=== PATIENT | female | born 1930 | race Caucasian/White ===

== ENCOUNTER 2017-03-21 16:03 | Inpatient (IN) ==
[2017-03-21] MEDS ORDERED: ATROPINE 1 MG/1 ML VIAL ONE (16:21)
[2017-03-21] MEDS ORDERED: NITROGLYCERIN 2% OINT 1 INCH/GM PACK TOP STA (16:23)
[2017-03-21] MEDS ORDERED: FUROSEMIDE 100 MG/10 ML VIAL IV STA (16:23)
[2017-03-21] MEDS ORDERED: MORPHINE 2 MG/1 ML SYRINGE IV STA (16:25)
--- NOTE | 2017-03-21 16:30 | EKG Report ---
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
--- NOTE | 2017-03-21 16:48 | XRay Report ---
Portable chest Date: 03/21/2017 Clinical history: Shortness of breath Comparison: None Technique: Portable AP sitting chest Findings: The heart is moderately enlarged with prominent pulmonary vasculature. Diffuse parenchymal findings with bilateral pleural effusions. Osteopenia with degenerative changes. Impression: Moderate cardiomegaly with findings consistent with moderate pulmonary edema with moderate pleural effusions. It is to exclude bilateral pneumonia with associated atelectasis. Osteopenia. PROCEDURE INTERPRETED AT [facility] DEPARTMENT OF RADIOLOGY Final Report Signed by: Dr. Nicolasa Small
[2017-03-21 17:04] LABS: Basophils # 0.1 10*3/uL (0.0-0.2); Basophils % 0.8 % (0.0-0.8); Eosinophils # 0.4 10*3/uL (0.0-0.87); Hematocrit 35.4 VOL% (35.7-47.0); Hemoglobin 11.4 GM/DL (12.0-16.0); Immature Granulocytes % 0.3 %; Immature Granulocytes Absolute 0.03 #; Lymphocytes # 1.6 10*3/uL (1.4-4.0); Lymphocytes % 17.3 % (21.3-54.2); Mean Corpuscular HGB Conc 32.2 GM/DL (32-36); Mean Corpuscular Hemoglobin 24 PG (27-34); Mean Corpuscular Volume 74.8 FL (87-102); Monocytes # 1.2 10*3/uL (0.11-0.8); Monocytes % 13.4 % (1.7-12.7); Neutrophils # 5.8 10*3/uL (1.4-7.4); Neutrophils % 64.2 % (38.7-73.9); Platelet Count 376 T/CUMM (130-400); Red Blood Count 4.73 MC/CUMM (3.8-5.5)
[2017-03-21 17:05] LABS: ABG Base Excess 3.9 MMOL/L (-2.5-2.5); ABG HCO3 27.8 MMOL/L (20-26); ABG Oxygen Saturation 97.5 % (95-100); ABG PCO2 44.9 MM HG (35-48); ABG PH 7.418 (7.35-7.45); ABG PO2 97.4 MM HG (80-95); ABG TCO2 25.8 MMOL/L (23-27)
[2017-03-21 17:12] LABS: Apearance,Urine CLEAR (Clear); Bilirubin,Urine Negative (Negative); Blood, Urine Small mg/dL (Negative); Glucose,Urine (UA) Negative (Negative); Ketones,Urine Negative (Negative); Nitrite,Urine Negative (Negative); Protein,Urine 30 MG/DL; RBC,Urine 1 /HPF (0-4); Squamous Epithelial Cell,Urine Occasional /HPF (0-10); Urine Color Yellow (Yellow); Urine Specific Gravity 1.012 (1.001-1.035); Urine Urobilinogen < 2.0 EU/DL (0.2-1.0); WBC,Urine 1 /HPF (0-6)
[2017-03-21] MEDS ORDERED: ATROPINE 1 MG/10 ML SYRINGE IV STA (17:13)
[2017-03-21 17:26] LABS: Magnesium 2.1 MG/DL (1.8-2.4); Troponin I Only < 0.015 NG/ML (0.00-0.045)
[2017-03-21] MEDS ORDERED: NITROGLYCERIN 2% OINT 1 INCH/GM PACK TOP ONE (17:32)
[2017-03-21] MEDS ORDERED: MORPHINE 2 MG/1 ML SYRINGE ONE (17:33)
[2017-03-21] MEDS ORDERED: FUROSEMIDE 100 MG/10 ML VIAL ONE (17:33)
--- NOTE | 2017-03-21 17:37 | Emergency Department Note ---
Marcelino Titus Brittany, am scribing for, and in the presence of, Sánchez Selby MD 16:26. Bal Titus Doug C, MD, personally performed the services described in this documentation, ascribed by Jennyfer Benson in my presence, and it is both accurate and complete 736 . Arrival - Arrival Chief Complaint: Shortness of Breath ED Nursing Triage Note: resp distress onset today. pt cant talk . pt has swelling to bilateral legs and rt arm Mode of Arrival: Stretcher Limitations: No Limitations Source: Patient, RN Notes Reviewed - History of Present Illness HPI Narrative: Patient is a 86-year-old white female who was sent to the emergency room for the emergency room for increasing dyspnea. Patient is unable to provide any history whatsoever. She was found to be bradycardic by EMS. Patient states she hurts all over but she cannot be more definitive than that. There is no history of any fever or chills. Has been no observed nausea or vomiting. She has not had any increased sputum production or hemoptysis but she is certainly been wheezing according to the nursing staff and patient also recognizes that she is wheezing a bit. Allergies/Adverse Reactions: Allergies Allergy/AdvReac Type Severity Reaction Status Date / Time codeine Allergy Unknown/Unable Verified 03/21/17 16:15 to obtain mirtazapine [From Remeron] Allergy Unknown/Unable Verified 03/21/17 16:15 to obtain scopolamine Allergy Unknown/Unable Verified 03/21/17 16:15 to obtain Review of System - Review of System ROS unobtainable: other (Poor Historian) - Review of System Constitutional: Present: other (C/o pain but does not specify this pain). Absent: fever Respiratory: Present: respiratory distress Gastrointestinal: Absent: nausea, vomiting Medical,Surgical,& Family Hx - Medical History Cardio: History of: Cardiac Dysrhythmia (afib), CHF, Hypertension Neurology: History of: Cerebrovascular Accident Respiratory: History of: Pneumonia - Surgical History Surgical History: noncontributory - Family History Family History: noncontributory - Social History Smoking Status: Never smoker Frequency of Alcohol Use: None Type of Drug Use: None Exam Vital Signs: Vital Signs Temperature 98.1 F 03/21/17 16:10 Pulse Rate 52 L 03/21/17 16:10 Respiratory Rate 20 03/21/17 16:10 Blood Pressure 176/82 03/21/17 16:10 O2 Sat by Pulse Oximetry 92 L 03/21/17 16:10 - General General appearance: alert, in no apparent distress - Head Head exam: Present: atraumatic, normocephalic, normal inspection - Eye Eye exam: Present: normal appearance, PERRL, EOMI - ENT ENT exam: Present: normal exam, normal oropharynx - Neck Neck exam: Present: normal inspection, full ROM, trachea midline - Chest Chest inspection: Present: normal inspection, symmetric chest wall rise - Respiratory Respiratory exam: Present: rales (inspiratory rales to both lung solo), wheezes (expiratory wheezes to both lung solo). Absent: normal lung sounds bilaterally - Cardiovascular Cardiovascular exam: Present: bradycardia. Absent: regular rate, normal heart sounds (difficult to auscultate heart sounds secondary to rattling breath sounds ) - Abdominal Exam Abdominal exam: Present: soft, normal bowel sounds. 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 Absent: motor sensory deficit - Psychiatric Psychiatric exam: Present: normal affect, normal mood - Skin Skin exam: Present: warm, dry Course Course Narrative: Patient's clinical presentation, laboratory and radiograph findings were discussed with Rhonda who is covering for the hospitalist service. She will see the patient emergency room and evaluate for admission. Results - Labs CBC & BMP: 03/21/17 16:52 Lab Results: I have reviewed the patients labs Labs: Laboratory Tests 03/21/17 03/21/17 16:50 16:52 WBC 9.0 RBC 4.73 Hgb 11.4 L Hct 35.4 L MCV 74.8 L MCH 24 L Plt Count 376 Lymph % (Auto) 17.3 L Gem % (Auto) 13.4 H Gem # (Auto) 1.2 H ABG pH 7.418 ABG pCO2 44.9 ABG pO2 97.4 H ABG HCO3 27.8 H ABG Total CO2 25.8 ABG O2 Saturation 97.5 ABG Base Excess 3.9 H Laboratory Tests 03/21/17 16:52 Urine Color Yellow Urine Appearance Clear Urine pH 6.0 Ur Specific [place] 1.012 Urine Protein 30 Urine Glucose (UA) Negative Urine Ketones Negative Urine Blood Small Urine Nitrate Negative Urine Bilirubin Negative Urine Urobilinogen < 2.0 H Urine Leukocytes Negative Urine RBC 1 Urine WBC 1 Ur Squamous Epith Cells Occasional Laboratory Tests 03/21/17 16:52 D-Dimer, Quantitative <= 0.5 Laboratory Tests 03/21/17 16:52 Magnesium 2.1 Troponin I < 0.015 - EKG EKG results: interpreted by ERMD, no acute changes EKG shows: bradycardia (Patient did have bradycardia with rate dropping into the 30s.), atrial fibrillation (With controlled rate at 62 bpm.) - Diagnostic Findings Procedure: Chest x-ray: report reviewed by me ( Moderate cardiomegaly with findings consistent with moderate pulmonary edema with moderate pleural effusions. It is to exclude bilateral pneumonia with associated atelectasis. Osteopenia.) Disposition Clinical Impression: Acute exacerbation of CHF (congestive heart failure) Case discussed with: patient Disposition: Still a Patient Condition: Guarded Time of Disposition: 17:36
--- NOTE | 2017-03-21 18:06 | Hospitalist History & Physical ---
Assessment and Plan - Time spent with patient Time spent with patient: Greater than 30 minutes (1) Dyspnea Status: Acute Assessment and plan: 03/21/17 - Admit to for continue monitor. Repeat a.m. labs. diuretics. continue home medications. Echo ordered.Will discuss with Dr Swan for further recommendations. Current Visit: Yes (2) Bradycardia Status: Acute Assessment and plan: Will hold beta sophia. Echo ordered. Current Visit: Yes History of Present Illness Chief complaint: dyspnea, bradycardia History of present illness: Ms. Garrido is a 86 year old white female w/ PMHx: Afib; CHF; Hypertension; CVA with right sided weakness transferred via EMS [facility] for shortness of breath and bradycardia. Patient is a poor historian related to previous CVA. She can verbalize her name but everything else asked she responds with "yes" , to all questions. IN the ED: Upon arrival Patient was noted to have a Heart Rate in the 39 to 42 range, Atropine 0.5 mg was given, given lasix 80mg IV; Morphine 2mg IV, Nitro 0.5 inch paste. Temperature 98.1; RR 20; BP 162/65; 93% on 3-4L; EKG: bradycardia; atrial fibrillation; Rate controlled. CXR: Moderate Cardiomegaly with findings consistent with moderate pulmonary edema with moderate pleural effusions; it is to exclude bilateral pneumonia with associated atelectasis; osteopenia. WBC 9.0 ; H&H 11.4 & 35.4; INR 1.3; INR 14.1; D-Dimer 0 ,0.5; Troponin <0.015; Urine clear; yellow; negative. Home Medications Medication Instructions Recorded Confirmed Type Amlodipine Besylate [Amlodipine 10 mg PO DAILY 03/21/17 03/21/17 History Besylate] Carvedilol [Carvedilol] 12.5 mg PO BID 03/21/17 03/21/17 History Gabapentin [Gabapentin] 300 mg PO TID 03/21/17 03/21/17 History Melatonin 9 mg PO BEDTIME 03/21/17 03/21/17 History Multivitamin (Centrum) [Centrum 1 tablet PO DAILY 03/21/17 03/21/17 History Tab] Tizanidine HCl [Tizanidine HCl] 2 mg PO Q8H 03/21/17 03/21/17 History Trazodone HCl 50 mg PO BEDTIME 03/21/17 03/21/17 History Warfarin Sodium [Warfarin Sodium] 2 mg PO SUTUWETHSA 03/21/17 03/21/17 History Warfarin [Coumadin] 3 mg PO MOFR 03/21/17 03/21/17 History Allergies Allergy/AdvReac Type Severity Reaction Status Date / Time codeine Allergy Unknown/Unable Verified 03/21/17 16:15 to obtain mirtazapine [From Remeron] Allergy Unknown/Unable Verified 03/21/17 16:15 to obtain scopolamine Allergy Unknown/Unable Verified 03/21/17 16:15 to obtain Medical,Surgical,& Family Hx - Medical History Cardio: History of: Cardiac Dysrhythmia (afib), CHF, Hypertension Neurology: History of: Cerebrovascular Accident Respiratory: History of: Pneumonia - Social History Smoking Status: Never smoker Frequency of Alcohol Use: None Type of Drug Use: None Lives With:: [facility] Functional capacity: wheelchair bound Review of systems: ROS unable to obtain due to poor historian. Exam - Constitutional Vitals: Period Temp Pulse Resp BP Sys/Marley Pulse Ox Last 24 Hr 98.1 F-98.1 F 52-52 20-20 176-176/82-82 92-93 General appearance: no acute distress, over weight - Head Head exam: Present: normal inspection - Eye Eye exam: Present: EOMI Pupils: Present: MAG - Neck Neck exam: Present: normal inspection - Respiratory Respiratory exam: Present: rales (lower field) - Cardiovascular Cardiovascular exam: Present: bradycardia, irregular rhythm - GI/Abdominal GI/Abdominal exam: Present: normal bowel sounds, soft. Absent: tenderness, rebound - Extremities Exam Extremities exam: Present: edema (2+ lower extremities; right arm swelling and some redness) - Neurological Exam Neurological exam: Present: alert, other (oriented to person, not place, or time ; right sided weakness due to previous CVA history) - Psychiatric Psychiatric exam: Present: normal affect, normal mood. Absent: agitated, anxious - Skin Skin exam: Present: normal color, warm, dry Results - Labs CBC & BMP: 03/21/17 16:52 Lab Results: I have reviewed the past 24 hour labs Labs: D-Dimer negative BNP 710 Troponin <0.015 NA 133; K 4.3; Chloride 98; Carbon dioxide 29; Anion gap 10.3 BUN 15 Creatinine 0.80 Glucose 97 Calcium 9.0 Magnesium 2.1 - EKG EKG results: interpreted by ERMD - Diagnostic Findings Procedure: Chest x-ray: report reviewed by me (Moderate cardiomegaly with findings consistent with moderate pulmonary edema with moderate pleural effusion , it is to exclude bilateral pneumonia with associated atelectasis, osteopenia)
[2017-03-21 18:08] LABS: INR 1.3; PT Patient Result 14.1 SECS
[2017-03-21 18:20] LABS: Osmolality,Calculated 266.4 MOS/KG (273-304); Potassium 4.3 MMOL/L (3.5-5.1)
[2017-03-21] MEDS ORDERED: MORPHINE 2 MG/1 ML SYRINGE IV PRN (19:55)
[2017-03-21] MEDS ORDERED: ONDANSETRON 4 MG/2 ML VIAL IV PRN (19:55)
[2017-03-21] MEDS: ENOXAPARIN 80 MG/0.8 ML SYRINGE SUBCUT SCH (20:54)
[2017-03-21] MEDS: GABAPENTIN 300 MG CAPSULE PO SCH (20:54)
[2017-03-21] MEDS: traZODone 50 MG TABLET PO SCH (20:54)
[2017-03-21] MEDS: FUROSEMIDE 40 MG/4 ML VIAL IV SCH (20:55)
[2017-03-21] MEDS: tiZANidine 4 MG TABLET PO SCH (23:27)
[2017-03-21] MEDS: MELATONIN 3 MG TABLET PO SCH (23:27)
[2017-03-22] MEDS: NITROGLYCERIN 2% OINT 1 INCH/GM PACK TOP SCH ×4 (00:05→17:32)
[2017-03-22] MEDS: FUROSEMIDE 40 MG/4 ML VIAL IV SCH ×4 (04:05→22:00)
[2017-03-22 04:40] LABS: Basophils % 0.6 % (0.0-0.8); Eosinophils # 0.4 10*3/uL (0.0-0.87); Eosinophils % 5.9 % (0.00-10.9); Hematocrit 30.9 VOL% (35.7-47.0); Hemoglobin 9.8 GM/DL (12.0-16.0); Immature Granulocytes % 0.3 %; Immature Granulocytes Absolute 0.02 #; Lymphocytes # 1.5 10*3/uL (1.4-4.0); Mean Corpuscular HGB Conc 31.7 GM/DL (32-36); Mean Corpuscular Hemoglobin 24 PG (27-34); Mean Corpuscular Volume 75.6 FL (87-102); Mean Platelet Volume 10.3 FL (9.6-12.0); Monocytes # 0.9 10*3/uL (0.11-0.8); Monocytes % 14.1 % (1.7-12.7); Neutrophils # 3.7 10*3/uL (1.4-7.4); Neutrophils % 56.1 % (38.7-73.9); Platelet Count 312 T/CUMM (130-400); Red Blood Count 4.09 MC/CUMM (3.8-5.5); Red Cell Distribution Width 16.1 % (9.3-17.3); White Blood Count 6.7 T/CUMM (4-12)
[2017-03-22 04:50] LABS: INR 1.4; PT Patient Result 15.3 SECS
[2017-03-22 05:32] LABS: Calcium 8.3 MG/DL (8.5-10.1); Osmolality,Calculated 272.8 MOS/KG (273-304); Potassium 3.7 MMOL/L (3.5-5.1); Risk Ratio 2.63; Thyroid Stimulating Hormone 3.73 uIU/ml (0.358-3.74)
[2017-03-22] MEDS: tiZANidine 4 MG TABLET PO SCH ×3 (07:18→21:58)
[2017-03-22] MEDS ORDERED: LISINOPRIL 5 MG TABLET PO SCH (09:00)
[2017-03-22] MEDS: MULTIVITAMIN (CENTRUM) TABLET PO SCH (09:01)
[2017-03-22] MEDS: GABAPENTIN 300 MG CAPSULE PO SCH ×3 (09:01→21:58)
[2017-03-22] MEDS: ENOXAPARIN 80 MG/0.8 ML SYRINGE SUBCUT SCH ×2 (09:01→22:01)
[2017-03-22] MEDS: amLODIPine 10 MG TABLET PO SCH (09:01)
[2017-03-22] MEDS: DESITIN 4OZ/NYSTATIN 15 GRAM MIXTURE PASTE TOP SCH ×3 (09:05→22:01)
--- NOTE | 2017-03-22 10:29 | Hospitalist Progress Note ---
Assessment and Plan - Time spent with patient Time spent with patient: Less than 30 minutes (1) Acute exacerbation of CHF (congestive heart failure) Status: Acute Assessment and plan: Patient was admitted for decompensated acute on chronic congestive heart failure , function unknown at this time. She was diuresed overnight and is symptomatically better. We will continue diuresis and afterload reduction. Echocardiogram is been ordered and is pending. Current Visit: Yes (2) CVA, old, hemiparesis Status: Chronic Assessment and plan: Stable. Continue current medical regimen. Current Visit: Yes (3) Hypertension Status: Chronic Assessment and plan: Blood pressures fairly well controlled. We are holding her beta-sophia secondary to her bradycardia. Continuing current regimen at present. Have added LISSETT inhibition to her regimen secondary to her congestive heart failure. Current Visit: Yes Qualifiers: Hypertension type: essential hypertension Qualified Code(s): I10 - Essential (primary) hypertension (4) Chronic atrial fibrillation Status: Chronic Assessment and plan: Patient has chronic atrial fibrillation and has had bradycardia which is been relatively asymptomatic. We have held her beta-sophia at this time. We will continue to follow and make further adjustments as required. Current Visit: Yes (5) Bradycardia Status: Acute Assessment and plan: As noted above. Current Visit: Yes Hospitalist: Subjective Interval history: Patient states that her breathing is much improved. She denies any chest pain, nausea, vomiting, dizziness, syncope. Exam - Constitutional Vitals: Period Temp Pulse Resp BP Sys/Marley Pulse Ox Last 24 Hr 96.9 F-98.6 F 52-70 16-20 130-194/66-85 92-100 General appearance: no acute distress - Head Head exam: Present: normocephalic, atraumatic - Eye Eye exam: Present: EOMI Pupils: Present: MAG - ENT ENT exam: Present: normal exam - Neck Neck exam: Present: normal inspection - Respiratory Respiratory exam: Present: clear to auscultation bilaterally. Absent: rales, rhonchi, wheezes - Cardiovascular Cardiovascular exam: Present: regular rate and rhythm - GI/Abdominal GI/Abdominal exam: Present: normal bowel sounds, soft. Absent: mass, tenderness , rebound - Extremities Exam Extremities exam: Present: edema (1+ pitting edema). Absent: calf tenderness - Neurological Exam Neurological exam: Present: alert, oriented X3, other (aphasic with right hemiparesis) - Skin Skin exam: Present: warm, dry. Absent: rash Results - Labs CBC & BMP: 03/22/17 03:41 03/22/17 03:41 Lab Results: I have reviewed the past 24 hour labs - EKG EKG shows: atrial fibrillation Quality Measures - VTE Contraindication to Pharmacological VTE Prophylaxis: Already on Theraputic Agent , No Prophylaxis Needed
[2017-03-22] MEDS ORDERED: LISINOPRIL 5 MG TABLET PO ONE (11:00)
[2017-03-22 11:04] LABS: Basophils % 0.6 % (0.0-0.8); Eosinophils # 0.2 10*3/uL (0.0-0.87); Eosinophils % 3.4 % (0.00-10.9); Hematocrit 32.8 VOL% (35.7-47.0); Hemoglobin 10.5 GM/DL (12.0-16.0); Immature Granulocytes % 0.4 %; Immature Granulocytes Absolute 0.03 #; Lymphocytes # 0.9 10*3/uL (1.4-4.0); Lymphocytes % 13.9 % (21.3-54.2); Mean Corpuscular Hemoglobin 24 PG (27-34); Mean Corpuscular Volume 76.3 FL (87-102); Mean Platelet Volume 9.8 FL (9.6-12.0); Monocytes # 0.9 10*3/uL (0.11-0.8); Neutrophils # 4.6 10*3/uL (1.4-7.4); Neutrophils % 68.7 % (38.7-73.9); Platelet Count 324 T/CUMM (130-400); Red Cell Distribution Width 16.6 % (9.3-17.3); White Blood Count 6.7 T/CUMM (4-12)
[2017-03-22] MEDS: POTASSIUM CHLORIDE 20 MEQ TABLET PO SCH ×2 (11:16→21:58)
[2017-03-22 11:44] LABS: Eosinophils 6 % (0-10); Hypochromasia 1+; Lymphocytes 14 % (20-55); Platelet Estimate Adequate; Segmented Neutrophils 72 % (50-85); Target Cells Slight; Total Cells Counted 100
[2017-03-22 11:47] LABS: Vitamin B12 448 PG/ML (211-911)
[2017-03-22 12:08] LABS: Sedimentation Rate-Westergren 24 MM/HR (0-30)
[2017-03-22] MEDS: WARFARIN 3 MG TABLET PO SCH (17:32)
--- NOTE | 2017-03-22 19:07 | ECHO Report ---
FREDERICK HURD Exam Date: 03/22/2017 09:26 Referring Physician: Technologist: Alice Allen RDCS Age: 86 Ht (in): 67 Wt (lb): 180 Gender: F Exam Location: [facility] Echo Indications: Acute on chronic heart failure, Chronic atrial fib, Bradycardia, unspecified, Essential (primary) hypertension, Dyspnea, unspecified, hx CVA BP: 139 / 66 HR: 57 Rhythm: Atrial fibrillation Technical Quality: Excellent, Good IMPRESSIONS Mild left ventricular hypertrophy. Left ventricular ejection fraction is estimated at 60 %. Moderately increased right ventricular size. Moderately increased right atrial size. Moderately increased left atrial size. Trace to mild mitral valve regurgitation. Mild aortic valve sclerosis. Mild aortic valve regurgitation. Morphologically normal tricuspid valve. Mild tricuspid valve regurgitation. Tricuspid regurgitation velocities suggest a PAP of 55 mmHg. Morphologically normal pulmonic valve. Hptj-dz-wioktbde pulmonary valve regurgitation. Trivial posterior pericardial effusion. Echocardiographic findings suggest a non hemodynamically significant pericardial effusion. + large left Pleural effusion. MEASUREMENTS (Male / Female) Normal Values 2D ECHO LV Diastolic Diameter PLAX 4.4 cm 4.2 - 5.9 / 3.9 - 5.3 cm LV Systolic Diameter PLAX 2.7 cm LV Fractional Shortening PLAX 38.2 % IVS Diastolic Thickness 1.0 cm 0.6 - 1.0 / 0.6 - 0.9 cm LVPW Diastolic Thickness 1.0 cm 0.6 - 1.0 / 0.6 - 0.9 cm RV Internal Dim ED PLAX 2.7 cm Aortic Root Diameter 2.9 cm LA Systolic Diameter LX 4.2 cm 3.0 - 4.0 / 2.7 - 3.8 cm DOPPLER TR Peak Velocity 337.0 cm/s TR Peak Gradient 45.4 mmHg FINDINGS Left Ventricle Normal left ventricular cavity size. Mild left ventricular hypertrophy. Left ventricular ejection fraction is estimated at 60 %. Right Ventricle Moderately increased right ventricular size. Right Atrium Moderately increased right atrial size. Left Atrium Moderately increased left atrial size. Mitral Valve Morphologically normal mitral valve. Mild mitral annular calcification. Trace to mild mitral valve regurgitation. Aortic Valve Mild aortic valve sclerosis. Mild aortic valve regurgitation. Tricuspid Valve Morphologically normal tricuspid valve. Mild tricuspid valve regurgitation. Tricuspid regurgitation velocities suggest a PAP of 55 mmHg. Pulmonic Valve Morphologically normal pulmonic valve. [id number]-ae-myriwnev pulmonary valve regurgitation. Pericardium Trivial posterior pericardial effusion. Echocardiographic findings suggest a non hemodynamically significant pericardial effusion. + large left Pleural effusion. Aorta Normal ascending aorta dimension. Alphonso Isidro MD (Electronically Signed) Final Date: 22 March 2017 19:06
[2017-03-22] MEDS: MELATONIN 3 MG TABLET PO SCH (21:57)
[2017-03-22] MEDS: traZODone 50 MG TABLET PO SCH (21:58)
[2017-03-23] MEDS: FUROSEMIDE 40 MG/4 ML VIAL IV SCH ×4 (03:02→21:26)
[2017-03-23 05:59] LABS: Hematocrit 33.6 VOL% (35.7-47.0); Hemoglobin 10.7 GM/DL (12.0-16.0)
[2017-03-23 06:09] LABS: INR 1.3; PT Patient Result 13.4 SECS
[2017-03-23] MEDS: tiZANidine 4 MG TABLET PO SCH ×3 (06:23→21:21)
[2017-03-23 06:31] LABS: Calcium 8.6 MG/DL (8.5-10.1); Osmolality,Calculated 270.8 MOS/KG (273-304); Potassium 3.5 MMOL/L (3.5-5.1)
[2017-03-23 07:03] LABS: Hemoglobin A1 (Alkaline) 97.2 % (96.5-98.5)
[2017-03-23 07:04] LABS: Hemoglobin A2 (Alkaline) 2.8 % (1.5-3.5)
--- NOTE | 2017-03-23 07:24 | XRay Report ---
XR chest 1V portable Indication: CHF. Chest one view: Since 2 days earlier, cardiomegaly, pulmonary vascular congestion and interstitial congestion of the lungs is stable. Lung bases remain completely obscured. Impression: No change. Although CHF is present, cannot exclude superimposed bibasilar pneumonia. PROCEDURE INTERPRETED AT [facility] DEPARTMENT OF RADIOLOGY Final Report Signed by: Benoit Castro M.D.
[2017-03-23] MEDS: NITROGLYCERIN 2% OINT 1 INCH/GM PACK TOP SCH ×3 (09:15→17:37)
[2017-03-23] MEDS: amLODIPine 10 MG TABLET PO SCH (09:53)
[2017-03-23] MEDS: LISINOPRIL 5 MG TABLET PO SCH (09:53)
[2017-03-23] MEDS: GABAPENTIN 300 MG CAPSULE PO SCH ×3 (09:53→21:23)
[2017-03-23] MEDS: POTASSIUM CHLORIDE 20 MEQ TABLET PO SCH ×2 (09:53→21:23)
[2017-03-23] MEDS: MULTIVITAMIN (CENTRUM) TABLET PO SCH (09:53)
[2017-03-23] MEDS: ENOXAPARIN 80 MG/0.8 ML SYRINGE SUBCUT SCH ×2 (09:53→21:23)
[2017-03-23] MEDS: DESITIN 4OZ/NYSTATIN 15 GRAM MIXTURE PASTE TOP SCH ×2 (09:54→21:31)
--- NOTE | 2017-03-23 11:32 | Hospitalist Progress Note ---
Assessment and Plan (1) Hypertension Status: Chronic Current Visit: Yes Qualifiers: Hypertension type: essential hypertension Qualified Code(s): I10 - Essential (primary) hypertension (2) Chronic atrial fibrillation Status: Chronic Current Visit: Yes (3) Acute exacerbation of CHF (congestive heart failure) Status: Acute Assessment and plan: Continue IV Lasix diuresis. Echocardiogram shows: Mild left ventricular hypertrophy. Left ventricular ejection fraction is estimated at 60 %. Moderately increased right ventricular size. Moderately increased right atrial size. Moderately increased left atrial size. Trace to mild mitral valve regurgitation. Mild aortic valve sclerosis. Mild aortic valve regurgitation. Morphologically normal tricuspid valve. Mild tricuspid valve regurgitation. Tricuspid regurgitation velocities suggest a PAP of 55 mmHg. Morphologically normal pulmonic valve. Yhfi-ho-hhxgdzho pulmonary valve regurgitation. Trivial posterior pericardial effusion. Echocardiographic findings suggest a non hemodynamically significant pericardial effusion. + large left Pleural effusion. Current Visit: Yes Qualifiers: Congestive heart failure type: diastolic Qualified Code(s): I50.33 - Acute on chronic diastolic (congestive) heart failure (4) Bradycardia Status: Acute Assessment and plan: Beta-blockers held Current Visit: Yes (5) CVA, old, hemiparesis Status: Chronic Current Visit: Yes Hospitalist: Subjective Interval history: Patient seen and examined. No acute events overnight. Case discussed with nursing staff. Labs reviewed. She continues to have a good response to Lasix and has diuresed 4 L. Exam - Constitutional Vitals: Period Temp Pulse Resp BP Sys/Marley Pulse Ox Last 24 Hr 97.5 F-99.2 F 48-63 16-22 104-161/44-72 92-100 Exam: Constitutional System: Mild distress. No tremulousness. Head: Normocephalic, atraumatic. Ears, Nose and Throat System: No pain or tenderness. No epistaxis or discharge Eyes System: Pupils equal, round, and reactive. Extraocular muscles intact. Neck: Supple, without adenopathy, No jugular venous distention. No thyromegaly, neck mass, or prior surgery apparent. Respiratory System: Chest with bilateral rales to auscultation. Cardiovascular System: Heart with irregular rate and rhythm. GI System: Abdomen soft, nontender. Normo active bowel sounds present. Musculoskeletal System: limbs with no pedal edema. Full distal pulses. Neurologic: aphasic with right hemiparesis status post stroke Results - Labs CBC & BMP: 08/15/17 05:20 03/23/17 05:20 Lab Results: I have reviewed the past 24 hour labs - Diagnostic Findings Procedure: Chest x-ray: report reviewed by me, image reviewed by me Quality Measures - VTE Contraindication to Pharmacological VTE Prophylaxis: Already on Theraputic Agent , No Prophylaxis Needed
[2017-03-23] MEDS: WARFARIN 1 MG TABLET PO SCH (17:36)
[2017-03-23] MEDS: MELATONIN 3 MG TABLET PO SCH (21:21)
[2017-03-23] MEDS: traZODone 50 MG TABLET PO SCH (21:23)
[2017-03-24] MEDS: NITROGLYCERIN 2% OINT 1 INCH/GM PACK TOP SCH ×2 (00:53→07:10)
[2017-03-24] MEDS: FUROSEMIDE 40 MG/4 ML VIAL IV SCH ×4 (05:29→17:35)
[2017-03-24 05:40] LABS: INR 1.2; PT Patient Result 13.3 SECS
[2017-03-24 06:11] LABS: Calcium 8.6 MG/DL (8.5-10.1); Magnesium 1.9 MG/DL (1.8-2.4); Osmolality,Calculated 270.8 MOS/KG (273-304); Potassium 3.4 MMOL/L (3.5-5.1)
[2017-03-24] MEDS: tiZANidine 4 MG TABLET PO SCH (07:17)
[2017-03-24] MEDS ORDERED: SODIUM CHLORIDE 0.9% 1,000 ML IV ONE (09:55)
[2017-03-24] MEDS: LISINOPRIL 5 MG TABLET PO SCH (10:25)
[2017-03-24] MEDS: amLODIPine 10 MG TABLET PO SCH (10:26)
[2017-03-24] MEDS: MULTIVITAMIN (CENTRUM) TABLET PO SCH (10:31)
[2017-03-24] MEDS: POTASSIUM CHLORIDE 20 MEQ TABLET PO SCH ×2 (10:32→21:38)
[2017-03-24] MEDS: DESITIN 4OZ/NYSTATIN 15 GRAM MIXTURE PASTE TOP SCH ×2 (10:32→21:39)
[2017-03-24] MEDS: GABAPENTIN 300 MG CAPSULE PO SCH ×3 (10:32→21:39)
[2017-03-24] MEDS: ENOXAPARIN 80 MG/0.8 ML SYRINGE SUBCUT SCH ×2 (10:32→21:37)
--- NOTE | 2017-03-24 13:28 | EKG Report ---
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
[2017-03-24] MEDS ORDERED: WARFARIN 5 MG TABLET PO ONE (16:37)
--- NOTE | 2017-03-24 16:40 | Hospitalist Progress Note ---
Assessment and Plan (1) Hypertension Status: Chronic Assessment and plan: Hold blood pressure medications secondary to hypotension today. Current Visit: Yes Qualifiers: Hypertension type: essential hypertension Qualified Code(s): I10 - Essential (primary) hypertension (2) Chronic atrial fibrillation Status: Chronic Assessment and plan: Now with bradycardia. Consult cardiology. Current Visit: Yes (3) Acute exacerbation of CHF (congestive heart failure) Status: Acute Assessment and plan: Continue IV Lasix diuresis. Echocardiogram shows: Mild left ventricular hypertrophy. Left ventricular ejection fraction is estimated at 60 %. Moderately increased right ventricular size. Moderately increased right atrial size. Moderately increased left atrial size. Trace to mild mitral valve regurgitation. Mild aortic valve sclerosis. Mild aortic valve regurgitation. Morphologically normal tricuspid valve. Mild tricuspid valve regurgitation. Tricuspid regurgitation velocities suggest a PAP of 55 mmHg. Morphologically normal pulmonic valve. Mfgt-li-pdgdwuvo pulmonary valve regurgitation. Trivial posterior pericardial effusion. Echocardiographic findings suggest a non hemodynamically significant pericardial effusion. + large left Pleural effusion. Current Visit: Yes Qualifiers: Congestive heart failure type: diastolic Qualified Code(s): I50.33 - Acute on chronic diastolic (congestive) heart failure (4) Bradycardia Status: Acute Assessment and plan: Beta-blockers held. Consult cardiology Current Visit: Yes (5) CVA, old, hemiparesis Status: Chronic Current Visit: Yes Hospitalist: Subjective Interval history: Patient seen and examined. No acute events overnight. Case discussed with nursing staff. Labs reviewed. Patient was acutely bradycardic and hypotensive. I will reduce her Lasix dose and hold some of her blood pressure medications. Cardiology consult pending Exam - Constitutional Vitals: Period Temp Pulse Resp BP Sys/Marley Pulse Ox Last 24 Hr 97.8 F-98.8 F 45-67 16-22 88-151/39-76 92-100 Exam: Constitutional System: Mild distress. No tremulousness. Head: Normocephalic, atraumatic. Ears, Nose and Throat System: No pain or tenderness. No epistaxis or discharge Eyes System: Pupils equal, round, and reactive. Extraocular muscles intact. Neck: Supple, without adenopathy, No jugular venous distention. No thyromegaly, neck mass, or prior surgery apparent. Respiratory System: Chest with improved breath sounds to auscultation. Cardiovascular System: Heart with bradycardic rate and rhythm. GI System: Abdomen soft, nontender. Normo active bowel sounds present. Musculoskeletal System: limbs with no pedal edema. Full distal pulses. Neurologic: aphasic with right hemiparesis status post stroke Results - Labs CBC & BMP: 03/23/17 05:20 03/24/17 04:56 Lab Results: I have reviewed the past 24 hour labs Quality Measures - VTE Contraindication to Pharmacological VTE Prophylaxis: Already on Theraputic Agent , No Prophylaxis Needed Specialty Discharge - Follow Up or Referrals
[2017-03-24] MEDS: WARFARIN 1 MG TABLET PO SCH (17:25)
--- NOTE | 2017-03-24 20:49 | Cardiology Consult Note ---
I, Magda Kumar, STACI, am scribing for, and in the presence of, Alphonso Isidro MD 20:49. Assessment and Plan - Time spent with patient Time spent with patient: Greater than 30 minutes (1) Acute exacerbation of CHF (congestive heart failure) Status: Acute Assessment and plan: Elderly woman who is relatively inactive after a stroke Does have bradycardia, but he may not be symptomatic with her level of inactivity, even if her heart rate was in the upper 30s Heart failure presumably is diastolic, given her normal EF by echo from 03/21 The patient is a shelter Patient is DNR Replete potassium We will try to be conservative regarding a pacemaker and only use if absolutely necessary Thank you for allowing me to participate in this patient's care Current Visit: Yes Qualifiers: Congestive heart failure type: diastolic Qualified Code(s): I50.33 - Acute on chronic diastolic (congestive) heart failure (2) Bradycardia Status: Acute Assessment and plan: SEE LIST AND PLAN OF CARE BELOW Current Visit: Yes (3) Dyspnea Status: Acute Assessment and plan: SEE LIST AND PLAN OF CARE BELOW Current Visit: Yes (4) CVA, old, hemiparesis Status: Chronic Assessment and plan: SEE LIST AND PLAN OF CARE BELOW Current Visit: Yes (5) Chronic atrial fibrillation Status: Chronic Assessment and plan: SEE LIST AND PLAN OF CARE BELOW Current Visit: Yes (6) Hypertension Status: Chronic Assessment and plan: SEE LIST AND PLAN OF CARE BELOW Current Visit: Yes Qualifiers: Hypertension type: essential hypertension Qualified Code(s): I10 - Essential (primary) hypertension History of Present Illness - Data of Consult Patient: new to practice Consult date: 03/24/17 Requesting Physician: Silvano Carrasquillo - Consult Narrative Reason for consult: Bradycardia and hypotension History of present illness: DIRECTOR HRIS: Dr. Isidro (new) The patient is an 86 WF, not known previously to our cardiology service. The patient was transferred from a local shelter to the ER on 03/21/2017 for shortness of breath and bradycardia. Cardiac history is significant for Afib, CHF, hypertension, CVA. The patient is a poor historian due to previous CVA, as a result most of this information has been obtained from old medical records. There is no family at bedside at present. The patient is a DO NOT RESUSCITATE. The patient is awake and alert, and appears to respond inappropriately to every question with either yes or no. Hemiplegia noted to right extremities post CVA. The patient's antihypertensive medications have been held due to hypotension, however the patient's blood pressure has improved through the day with the last reading 134/58. EKG reveals atrial fibrillation with a rate in the 40s and 50s today. Labs reviewed today:H & H at 10.7 and 33.6; Potassium 3.4; Creatinine 0.6; TSH and T4 unremarkable; lipid panel reviewed; troponin upon admission was negative. The patient is continuing warfarin therapy with a subtherapeutic INR, she will continue Lovenox until INR is therapeutic. It is difficult to determine through interview and exam if the patient's bradycardia is symptomatic. Would continue continuous telemetry monitoring and could consider pacemaker if needed and the family is agreeable. I discussed this case with Dr. Isidro and will await further recommendations. ASSESSMENT/PLAN: 1. Bradycardia -Afib on EKG with a rate in the 40s-50s, continue to monitor with telemetry. 2. Hypotension -continue to hold antihypertensives, and monitor closely. 3. Chronic Afib -continue warfarin and Lovenox, continue telemetry. 4. Acute CHF -patient is diuresing well, continue furosemide. 5. Old CVA, right-sided hemiplegia -continue warfarin and Lovenox, chronic Afib. CC: Silvano Carrasquillo MD - Home Medications and Allergies Home Medications: Home Medications Medication Instructions Recorded Confirmed Type Amlodipine Besylate [Amlodipine 10 mg PO DAILY 03/21/17 03/21/17 History Besylate] Carvedilol [Carvedilol] 12.5 mg PO BID 03/21/17 03/21/17 History Gabapentin [Gabapentin] 300 mg PO TID 03/21/17 03/21/17 History Melatonin 9 mg PO BEDTIME 03/21/17 03/21/17 History Multivitamin (Centrum) [Centrum 1 tablet PO DAILY 03/21/17 03/21/17 History Tab] Tizanidine HCl [Tizanidine HCl] 2 mg PO Q8H 03/21/17 03/21/17 History Trazodone HCl 50 mg PO BEDTIME 03/21/17 03/21/17 History Warfarin Sodium [Warfarin Sodium] 2 mg PO SUTUWETHSA 03/21/17 03/21/17 History Warfarin [Coumadin] 3 mg PO MOFR 03/21/17 03/21/17 History Allergies/Adverse Reactions: Allergies Allergy/AdvReac Type Severity Reaction Status Date / Time codeine Allergy Unknown/Unable Verified 03/21/17 16:15 to obtain mirtazapine [From Remeron] Allergy Unknown/Unable Verified 03/21/17 16:15 to obtain scopolamine Allergy Unknown/Unable Verified 03/21/17 16:15 to obtain ROS unobtainable: due to mental status, due to dementia Medical,Surgical,& Family Hx - Medical History Cardio: History of: Cardiac Dysrhythmia (afib), CHF, Hypertension Neurology: History of: Cerebrovascular Accident Respiratory: History of: Pneumonia Musculoskeletal: History of: Musculoskeletal Problems (right sided hemiparesis, right hand contracted) - Social History Smoking Status: Never smoker Frequency of Alcohol Use: None Type of Drug Use: None Lives With:: shelter Functional capacity: bed bound Physical Examination Vital Signs Temp Pulse Resp BP Pulse Ox 98.1 F 52 L 20 176/82 92 L 03/21/17 16:10 03/21/17 16:10 03/21/17 16:10 03/21/17 16:10 03/21/17 16:10 Exam: General: [Appears well with no apparent distress.] [Pleasant and cooperative. ] [Appears comfortable.] HEENT: [PERRL, normocephalic, atraumatic]. [Mucous membranes moist.] [No jaundice noted.] [Conjunctiva moist and clear, sclerae anicteric.] Neck: [No JVD/HJR, no thyromegaly or lymphadenopathy noted.] [ No carotid bruit appreciated.] Cardiac: [Irregular rate and rhythm.] [No murmur rub or gallop.] [PMI is nondisplaced.] Lungs: [Clear to auscultation without accessory muscle use to assist the respiratory pattern.] Not requiring oxygen] Abdomen: [Soft, bowel sounds normoactive.] [Nontender and nondistended.] [No abdominal bruit or thrill noted.] [No masses noted.] Musculoskeletal: [No fluid collection.] [Decreased range of motion is noted.] Extremities: [No clubbing, cyanosis noted.] [ No edema noted.] [Upper extremity pulses 2+.] [Lower extremity pulses 2+.] [Capillary refill less than 3 seconds.] Skin: [No unusual lesions or rashes.] [No skin breakdown appreciated.] Neuro: [Awake, alert.] [Moves all extremities well on the left, with hemiplegia noted to right upper and lower extremity ] [No essential tremor is appreciated.] Result/EKG - Labs CBC & BMP: 03/23/17 05:20 03/24/17 04:56 Lab Results: I have reviewed the past 24 hour labs Labs: Laboratory Results - last 24 hr 03/24/17 03/24/17 04:56 04:56 INR 1.2 PT Patient/Control Mix 13.3 Sodium 137 Potassium 3.4 L Chloride 95 L Carbon Dioxide 33 H Anion Gap 12.4 BUN 10 Creatinine 0.60 GFR Calculation 86 BUN/Creatinine Ratio 16.00 Glucose 82 Calculated Osmolality 270.8 L Calcium 8.6 Magnesium 1.9 - EKG EKG results: interpreted by me EKG shows: bradycardia, atrial fibrillation Quality Measures - VTE Contraindication to Pharmacological VTE Prophylaxis: Already on Theraputic Agent , No Prophylaxis Needed Specialty Discharge - Follow Up or Referrals I, Alphonso Isidro MD, personally performed the services described in this documentation, ascribed by Magda Kumar NP in my presence, and it is both accurate and complete .
[2017-03-24] MEDS: MELATONIN 3 MG TABLET PO SCH (21:37)
[2017-03-24] MEDS: traZODone 50 MG TABLET PO SCH (21:38)
[2017-03-25 05:22] LABS: Basophils % 0.3 % (0.0-0.8); Eosinophils # 0.3 10*3/uL (0.0-0.87); Eosinophils % 3.6 % (0.00-10.9); Hematocrit 35.9 VOL% (35.7-47.0); Hemoglobin 11.4 GM/DL (12.0-16.0); Immature Granulocytes % 0.2 %; Immature Granulocytes Absolute 0.02 #; Lymphocytes # 1.5 10*3/uL (1.4-4.0); Lymphocytes % 16.9 % (21.3-54.2); Mean Corpuscular HGB Conc 31.8 GM/DL (32-36); Mean Corpuscular Hemoglobin 24 PG (27-34); Mean Corpuscular Volume 74.9 FL (87-102); Mean Platelet Volume 10.8 FL (9.6-12.0); Monocytes # 1.2 10*3/uL (0.11-0.8); Monocytes % 13.6 % (1.7-12.7); Neutrophils # 5.6 10*3/uL (1.4-7.4); Neutrophils % 65.4 % (38.7-73.9); Platelet Count 402 T/CUMM (130-400); Red Blood Count 4.79 MC/CUMM (3.8-5.5); Red Cell Distribution Width 16.6 % (9.3-17.3); White Blood Count 8.6 T/CUMM (4-12)
[2017-03-25 05:49] LABS: Calcium 9.1 MG/DL (8.5-10.1); Osmolality,Calculated 271.8 MOS/KG (273-304); Potassium 3.8 MMOL/L (3.5-5.1)
--- NOTE | 2017-03-25 08:42 | XRay Report ---
Single view of the chest. Indication: Congestive heart failure. Comparison: March 23, 2017. The heart is enlarged. The pulmonary vasculature is prominent. There are bilateral infiltrates and pleural effusions, similar to the previous study. Degenerative changes are present within the spinal column and shoulders. Impression: Stable appearance of the chest consistent with congestive heart failure. Superimposed pneumonia cannot be excluded, particularly due to the density of the infiltrates present. PROCEDURE INTERPRETED AT [facility] DEPARTMENT OF RADIOLOGY Final Report Signed by: Dr. Megan Gibson
[2017-03-25] MEDS: POTASSIUM CHLORIDE 20 MEQ TABLET PO SCH ×2 (08:47→22:20)
[2017-03-25] MEDS: ENOXAPARIN 80 MG/0.8 ML SYRINGE SUBCUT SCH ×2 (08:47→22:19)
[2017-03-25] MEDS: MULTIVITAMIN (CENTRUM) TABLET PO SCH (08:47)
[2017-03-25] MEDS: DESITIN 4OZ/NYSTATIN 15 GRAM MIXTURE PASTE TOP SCH ×2 (08:47→22:20)
[2017-03-25] MEDS: GABAPENTIN 300 MG CAPSULE PO SCH ×3 (08:47→22:19)
[2017-03-25] MEDS ORDERED: amLODIPine 10 MG TABLET PO ONE (09:36)
--- NOTE | 2017-03-25 10:30 | Discharge Summary ---
Diagnosis - Discharge Diagnosis (1) Hypertension Status: Chronic (2) Chronic atrial fibrillation Status: Chronic (3) Acute exacerbation of CHF (congestive heart failure) Status: Acute (4) Bradycardia Status: Acute (5) CVA, old, hemiparesis Status: Chronic Specialty Discharge - Follow Up or Referrals Discharge Plan - Discharge Medications No Action Melatonin 9 mg PO BEDTIME Trazodone HCl 50 mg PO BEDTIME Multivitamin (Centrum) [Centrum Tab] 1 tablet PO DAILY Warfarin Sodium [Warfarin Sodium] 2 mg PO SUTUWETHSA Tizanidine HCl [Tizanidine HCl] 2 mg PO Q8H Gabapentin [Gabapentin] 300 mg PO TID Carvedilol [Carvedilol] 12.5 mg PO BID Amlodipine Besylate [Amlodipine Besylate] 10 mg PO DAILY Warfarin [Coumadin] 3 mg PO MOFR - Follow Up or Referral - Forms/Instructions Instructions: Warfarin (By mouth) Additional Discharge Instructions: Follow-up with primary care physician in 1 week Exam - Constitutional Vitals: Period Temp Pulse Resp BP Sys/Marley Pulse Ox Last 24 Hr 97 F-98.7 F 48-78 16-18 119-172/39-80 90-98 Discharge Results Procedures and tests throughout hospitalization: Pending Orders 03/21/17 16:52 Blood Culture Stat 03/22/17 10:31 Occult Blood, Stool Routine Labs on day of discharge: Labs from last 24 hours 03/25/17 03/25/17 04:16 04:16 WBC 8.6 RBC 4.79 Hgb 11.4 L Hct 35.9 MCV 74.9 L MCH 24 L MCHC 31.8 L RDW 16.6 Plt Count 402 H D MPV 10.8 Neut % (Auto) 65.4 Lymph % (Auto) 16.9 L [place] % (Auto) 13.6 H Eos % (Auto) 3.6 Baso % (Auto) 0.3 Neut # (Auto) 5.6 Lymph # (Auto) 1.5 [place] # (Auto) 1.2 H Eos # (Auto) 0.3 Baso # (Auto) 0.0 Immature Gran % 0.2 Nucleated RBC % 0.0 Immature Gran # 0.02 Nucleated RBCs # 0.00 Immature Plt Fraction 0.0 Sodium 137 Potassium 3.8 Chloride 95 L Carbon Dioxide 35 H Anion Gap 10.8 BUN 12 Creatinine 0.60 GFR Calculation 85 BUN/Creatinine Ratio 20.00 Glucose 88 Calculated Osmolality 271.8 L Calcium 9.1 Preliminary micro results at discharge 03/21/17 16:52 Blood Culture - Preliminary Blood No growth at 3 days 03/21/17 16:36 Blood Culture - Preliminary Blood No growth at 3 days DS: Provider Date of admission: 03/21/17 17:58 Primary care physician: . No PCP Attending physician on admission: Benoit Montano MD Consults: 03/22/17 00:11 Consult to Dietitian [CONS] Routine Reason for Dietitian: Dietary Consult 03/24/17 09:55 Consult to Physician [CONS] Routine Comment: Consulting Provider: Consult to Specialist Group: Cardiology When should Consulting Provider be notified: Now Person Notified: Shanna Date Notified: 03/24/17 Time Notified: 02:35 Discharging clinician: Silvano Carrasquillo MD
--- NOTE | 2017-03-25 13:56 | Cardiology Progress Note ---
José Titus Lesley, STACI, am scribing for, and in the presence of, Lisette Joens NP 13:56. Assessment and Plan (1) Acute exacerbation of CHF (congestive heart failure) Status: Acute Assessment and plan: SEE LIST AND PLAN OF CARE BELOW Current Visit: Yes Qualifiers: Congestive heart failure type: diastolic Qualified Code(s): I50.33 - Acute on chronic diastolic (congestive) heart failure (2) Bradycardia Status: Acute Assessment and plan: SEE LIST AND PLAN OF CARE BELOW Current Visit: Yes (3) Dyspnea Status: Acute Assessment and plan: SEE LIST AND PLAN OF CARE BELOW Current Visit: Yes (4) CVA, old, hemiparesis Status: Chronic Assessment and plan: SEE LIST AND PLAN OF CARE BELOW Current Visit: Yes (5) Chronic atrial fibrillation Status: Chronic Assessment and plan: SEE LIST AND PLAN OF CARE BELOW Current Visit: Yes (6) Hypertension Status: Chronic Assessment and plan: SEE LIST AND PLAN OF CARE BELOW Current Visit: Yes Qualifiers: Hypertension type: essential hypertension Qualified Code(s): I10 - Essential (primary) hypertension Cardiology - PN: Subj Interval history: PRECISION GRINDER: Dr. Isidro (new) The patient is an 86 WF, not known previously to our cardiology service. [facility] a local [facility] ER on 03/21/2017 for shortness of breath and bradycardia. Cardiac history is significant for Afib, CHF, hypertension, CVA. The patient is a poor historian due to previous CVA, as a result most of this information has been obtained from old medical records. There is no family at bedside at present. The patient is a DO NOT RESUSCITATE. The patient is awake and alert, and appears to respond inappropriately to every question with either yes or no. Hemiplegia noted to right extremities post CVA. The patient's antihypertensive medications have been held due to hypotension, however the patient's blood pressure has improved through the day with the last reading 134/58. EKG reveals atrial fibrillation with a rate in the 40s and 50s today. Labs reviewed today:H & H at 10.7 and 33.6; Potassium 3.4; Creatinine 0.6; TSH and T4 unremarkable; lipid panel reviewed; troponin upon admission was negative. The patient is continuing warfarin therapy with a subtherapeutic INR, she will continue Lovenox until INR is therapeutic. It is difficult to determine through interview and exam if the patient's bradycardia is symptomatic. Would continue continuous telemetry monitoring and could consider pacemaker if needed and the family is agreeable. MARCH 25, 2017: The patient is awake and alert this morning lying in bed. It appears that her blood pressure and heart rate have responded well to holding antihypertensives, would recommend slowly restarting medication and continue holding any vickie blocking agent. Telemetry continues to show Afib, rate in the 60s-70s. Chest x-ray reveals enlarged heart, consistent with congestive heart failure with possible superimposed pneumonia. Patient remains afebrile. Labs reviewed today: CBC with unremarkable white count, stable hemoglobin and hematocrit at 11.4 and 35.9, creatinine 0.6 electrolytes WNL. Heart failure is thought to be diastolic, given her normal EF by echo from 03/21. Will discuss plan of care with Dr. Isidro and await further recommendations. ASSESSMENT/PLAN: 1. Bradycardia -Afib on EKG with a rate in the 40s-50s, continue to monitor with telemetry. 2. Hypotension -improving. Slowly restart antihypertensives, and monitor closely. 3. Chronic Afib -continue warfarin and Lovenox, continue telemetry. 4. Acute CHF -patient is diuresing well, holding furosemide due to hypotension. 5. Old CVA, right-sided hemiplegia -continue warfarin and Lovenox, chronic Afib. Exam (Progress Note) - Constitutional Vitals: Period Temp Pulse Resp BP Sys/Marley Pulse Ox Last 24 Hr 97 F-98.7 F 45-78 16-18 88-172/39-80 90-100 Exam: General: [Appears well with no apparent distress.] [Pleasant and cooperative. ] [Appears comfortable.] HEENT: [PERRL, normocephalic, atraumatic]. [Mucous membranes moist.] [No jaundice noted.] [Conjunctiva moist and clear, sclerae anicteric.] Neck: [No JVD/HJR, no thyromegaly or lymphadenopathy noted.] [ No carotid bruit appreciated.] Cardiac: [Irregular rate and rhythm.] [No murmur rub or gallop.] [PMI is nondisplaced.] Lungs: [Essentially clear to auscultation without accessory muscle use to assist the respiratory pattern.] [No oxygen required] Abdomen: [Soft, bowel sounds normoactive.] [Nontender and nondistended.] [No abdominal bruit or thrill noted.] [No masses noted.] Musculoskeletal: [No fluid collection.] [Decreased range of motion is noted.] Hemiplegia noted to right upper and lower extremity post CVA. Extremities: [No clubbing, cyanosis noted.] [Generalized dependent edema noted to right upper extremity.] [Upper extremity pulses 2+.] [Lower extremity pulses 2+.] [Capillary refill less than 3 seconds.] Skin: [No unusual lesions or rashes.] [No skin breakdown appreciated.] Neuro: [Awake and alert.] [Patient does not move right upper or lower extremity. Moves left upper and lower extremity without difficulty.] [No essential tremor is appreciated.] Result/EKG - Labs CBC & BMP: 03/25/17 04:16 03/25/17 04:16 Lab Results: I have reviewed the past 24 hour labs Labs: Laboratory Results - last 24 hr 03/25/17 03/25/17 04:16 04:16 WBC 8.6 RBC 4.79 Hgb 11.4 L Hct 35.9 MCV 74.9 L MCH 24 L MCHC 31.8 L RDW 16.6 Plt Count 402 H D MPV 10.8 Neut % (Auto) 65.4 Lymph % (Auto) 16.9 L [place] % (Auto) 13.6 H Eos % (Auto) 3.6 Baso % (Auto) 0.3 Neut # (Auto) 5.6 Lymph # (Auto) 1.5 [place] # (Auto) 1.2 H Eos # (Auto) 0.3 Baso # (Auto) 0.0 Immature Gran % 0.2 Nucleated RBC % 0.0 Immature Gran # 0.02 Nucleated RBCs # 0.00 Immature Plt Fraction 0.0 Sodium 137 Potassium 3.8 Chloride 95 L Carbon Dioxide 35 H Anion Gap 10.8 BUN 12 Creatinine 0.60 GFR Calculation 85 BUN/Creatinine Ratio 20.00 Glucose 88 Calculated Osmolality 271.8 L Calcium 9.1 - Diagnostic Findings Procedure: Chest x-ray: report reviewed by me - EKG EKG results: interpreted by me EKG shows: bradycardia, atrial fibrillation Quality Measures - VTE Contraindication to Pharmacological VTE Prophylaxis: Already on Theraputic Agent , No Prophylaxis Needed Specialty Discharge - Follow Up or Referrals I, Karen,Lisette E, BALANCE BRIDGE ASSEMBLER, personally performed the services described in this documentation, ascribed by Magda Kumar NP in my presence, and it is both accurate and complete .
[2017-03-25] MEDS: WARFARIN 1 MG TABLET PO SCH (18:15)
--- NOTE | 2017-03-25 18:29 | Hospitalist Progress Note ---
Assessment and Plan (1) Hypertension Status: Chronic Assessment and plan: I will resume her blood pressure medications today as her hypotension has resolved Current Visit: Yes Qualifiers: Hypertension type: essential hypertension Qualified Code(s): I10 - Essential (primary) hypertension (2) Chronic atrial fibrillation Status: Chronic Assessment and plan: Heart rate has improved. Cardiology consult noted. Current Visit: Yes (3) Acute exacerbation of CHF (congestive heart failure) Status: Acute Assessment and plan: Continue IV Lasix diuresis. Echocardiogram shows: Mild left ventricular hypertrophy. Left ventricular ejection fraction is estimated at 60 %. Moderately increased right ventricular size. Moderately increased right atrial size. Moderately increased left atrial size. Trace to mild mitral valve regurgitation. Mild aortic valve sclerosis. Mild aortic valve regurgitation. Morphologically normal tricuspid valve. Mild tricuspid valve regurgitation. Tricuspid regurgitation velocities suggest a PAP of 55 mmHg. Morphologically normal pulmonic valve. [id number] pulmonary valve regurgitation. Trivial posterior pericardial effusion. Echocardiographic findings suggest a non hemodynamically significant pericardial effusion. + large left Pleural effusion. Current Visit: Yes Qualifiers: Congestive heart failure type: diastolic Qualified Code(s): I50.33 - Acute on chronic diastolic (congestive) heart failure (4) Bradycardia Status: Resolved Assessment and plan: Beta-blockers held. Consult cardiology Current Visit: Yes (5) CVA, old, hemiparesis Status: Chronic Current Visit: Yes Hospitalist: Subjective Interval history: Patient seen and examined. No acute events overnight. Case discussed with nursing staff. Labs reviewed. The patient looks and feels better. Her blood pressure and heart rate have improved. Her chest x-ray continues to show an element of congestive heart failure. I do not believe she has pneumonia. She has no white blood cell count elevation or fever or productive cough. I will resume Lasix and repeat INR in a.m. She has been subtherapeutic on Coumadin and has been receiving subcutaneous Lovenox injection. She could potentially go back to the longterm tomorrow as her symptoms have improved significantly. Exam - Constitutional Vitals: Period Temp Pulse Resp BP Sys/Marley Pulse Ox Last 24 Hr 97 F-98.8 F 48-86 18-18 143-178/62-85 90-98 Exam: Constitutional System: Mild distress. No tremulousness. Head: Normocephalic, atraumatic. Ears, Nose and Throat System: No pain or tenderness. No epistaxis or discharge Eyes System: Pupils equal, round, and reactive. Extraocular muscles intact. Neck: Supple, without adenopathy, No jugular venous distention. No thyromegaly, neck mass, or prior surgery apparent. Respiratory System: Chest with improved breath sounds to auscultation. Clear to auscultation bilaterally Cardiovascular System: Heart with regular rate and rhythm. GI System: Abdomen soft, nontender. Normo active bowel sounds present. Musculoskeletal System: limbs with no pedal edema. Full distal pulses. Neurologic: aphasic with right hemiparesis status post stroke Results - Labs CBC & BMP: 03/25/17 04:16 03/25/17 04:16 Lab Results: I have reviewed the past 24 hour labs - Diagnostic Findings Procedure: Chest x-ray: report reviewed by me, image reviewed by me Quality Measures - VTE Contraindication to Pharmacological VTE Prophylaxis: Already on Theraputic Agent , No Prophylaxis Needed Specialty Discharge - Follow Up or Referrals
[2017-03-25] MEDS: amLODIPine 10 MG TABLET PO SCH (18:41)
[2017-03-25] MEDS: MELATONIN 3 MG TABLET PO SCH (22:19)
[2017-03-25] MEDS: traZODone 50 MG TABLET PO SCH (22:20)
[2017-03-26] MEDS: FUROSEMIDE 40 MG/4 ML VIAL IV SCH ×2 (05:18→16:15)
[2017-03-26 06:03] LABS: INR 1.5; PT Patient Result 16.6 SECS
[2017-03-26 06:33] LABS: Calcium 9.1 MG/DL (8.5-10.1); Magnesium 2.1 MG/DL (1.8-2.4)
[2017-03-26] MEDS: MULTIVITAMIN (CENTRUM) TABLET PO SCH (09:09)
[2017-03-26] MEDS: amLODIPine 10 MG TABLET PO SCH (09:10)
[2017-03-26] MEDS: ENOXAPARIN 80 MG/0.8 ML SYRINGE SUBCUT SCH (09:10)
[2017-03-26] MEDS: GABAPENTIN 300 MG CAPSULE PO SCH ×2 (09:11→16:18)
[2017-03-26] MEDS: POTASSIUM CHLORIDE 20 MEQ TABLET PO SCH (09:11)
[2017-03-26] MEDS: DESITIN 4OZ/NYSTATIN 15 GRAM MIXTURE PASTE TOP SCH (09:17)
[2017-03-26] MEDS ORDERED: amLODIPine 10 MG TABLET PO SCH (09:30)
[2017-03-26] MEDS: LISINOPRIL 5 MG TABLET PO SCH ×2 (10:27→10:29)
[2017-03-26] MEDS ORDERED: LISINOPRIL 10 MG TABLET PO SCH (11:00)
--- NOTE | 2017-03-26 14:48 | Discharge Summary ---
Hospital Course - Hospital Course Hospital Course: 86-year-old white female [facility] with a past medical history significant for hypertension, CVA with right-sided weakness, chronic atrial fibrillation who was found to have increasing shortness of breath and sinus bradycardia. She denied any chest pain or increasing shortness of breath. History was difficult to obtain because of her prior stroke and aphasia. She was seen in the emergency room and received IV atropine, IV Lasix , IV morphine and nitroglycerin paste. Her code status was DNR. She was admitted , Coreg was held and she received diuretics for acute on ch diastolic CHF, and her dyspnea improved. Sinus bradycardia resolved after holding her Coreg. Other NH meds were continued. Chest x-ray showed infiltrates bilaterally due to congestive heart failure although pneumonia could not be ruled out and she was treated with antibiotics doxycycline and Augmentin that were continued [facility] the [facility]. She has reached maximal hospital benefit and is being discharged back [facility]. - Time spent with patient Time with patient DS: Less than 30 minutes Diagnosis - Discharge Diagnosis (1) Bradycardia Status: Resolved (2) Dyspnea Status: Resolved Specialty Discharge - Follow Up or Referrals Discharge Plan - Discharge Data Disposition: Disch/Xfer to Snf Condition at Discharge: Stable Discharge Diet: low salt diet Activity: resume usual activities as tolerated - Discharge Medications New Amoxicillin/Clav Liquid [Augmentin Es Liquid] 600 mg PO Q12HR #1 bottle Doxycycline Hyclate Cap [Vibramycin Cap] 100 mg PO BID #20 capsule Furosemide Tab [Lasix Tab] 40 mg PO DAILY #30 tablet Potassium Chloride Cap/Tab [K Dur] 20 meq PO BID #30 tablet amLODIPine [Norvasc] 10 mg PO DAILY #30 tablet Lisinopril [Prinivil] 10 mg PO DAILY tablet Continue Melatonin 9 mg PO BEDTIME Trazodone HCl 50 mg PO BEDTIME Multivitamin (Centrum) [Centrum Tab] 1 tablet PO DAILY Warfarin Sodium 2 mg PO SUTUWETHSA Tizanidine HCl 2 mg PO Q8H Gabapentin 300 mg PO TID Warfarin [Coumadin] 3 mg PO MOFR No Action Carvedilol [Carvedilol] 12.5 mg PO BID Amlodipine Besylate [Amlodipine Besylate] 10 mg PO DAILY - Follow Up or Referral - Forms/Instructions Instructions: Warfarin (By mouth) Exam - Constitutional Vitals: Period Temp Pulse Resp BP Sys/Marley Pulse Ox Last 24 Hr 98 F-98.8 F 51-86 16-20 146-188/65-84 90-97 Exam: General: No Acute Distress HEENT: Normocephalic, atraumatic, Extra ocular movements intact Neck: Supple, No JVD Chest: Clear to auscultation B/L CV: S1 + S2 audible without murmur, gallop or rub Abd: soft, NT, Non-distended, BS + Ext: Edema + Skin: No purpura, bruising or rash Rheumatologic: No Joint deformities Neurologic: Right hemiparesis Discharge Results Procedures and tests throughout hospitalization: Pending Orders 03/21/17 16:52 Blood Culture Stat 03/22/17 10:31 Occult Blood, Stool Routine 03/27/17 04:00 BMP w/ Mg [Basic Metabolic Panel w/Mg] IN AM CBC [Comp Blood Count Auto Diff] IN AM Labs on day of discharge: Labs from last 24 hours 03/26/17 03/26/17 05:32 05:32 INR 1.5 PT Patient/Control Mix 16.6 D Sodium 136 Potassium 4.0 Chloride 98 Carbon Dioxide 33 H Anion Gap 9.0 BUN 14 Creatinine 0.50 L GFR Calculation 106 BUN/Creatinine Ratio 28.00 H Glucose 91 Calculated Osmolality 272.0 L Calcium 9.1 Magnesium 2.1 Preliminary micro results at discharge 03/21/17 16:52 Blood Culture - Preliminary Blood No growth at 3 days 03/21/17 16:36 Blood Culture - Preliminary Blood No growth at 3 days DS: Provider Date of admission: 03/21/17 17:58 Primary care physician: . No PCP Attending physician on admission: Benoit Montano MD Consults: 03/22/17 00:11 Consult to Dietitian [CONS] Routine Reason for Dietitian: Dietary Consult 03/24/17 09:55 Consult to Physician [CONS] Routine Comment: Consulting Provider: Consult to Specialist Group: Cardiology When should Consulting Provider be notified: Now Person Notified: Shanna Date Notified: 03/24/17 Time Notified: 02:35 Discharging clinician: Dirk Martinez MD
[2017-03-26] MEDS ORDERED: AMOXICILLIN/CLAV ES 600 125 ML/BOTTLE PO SCH (15:00)
[2017-03-26] MEDS ORDERED: DOXYCYCLINE HYCLATE 100 MG CAPSULE PO SCH (15:00)
[2017-03-26 16:56] VITALS: BP 156/53
[2017-03-26] MEDS: WARFARIN 3 MG TABLET PO SCH (18:07)
--- NOTE | 2017-03-26 20:40 | Cardiology Progress Note ---
I, Magda Kumar, STACI, am scribing for, and in the presence of, Alphonso Isidro MD 20:40. Assessment and Plan - Time spent with patient Time spent with patient: Greater than 30 minutes (1) Bradycardia Status: Resolved Assessment and plan: Plan/recommendation: Bradycardia has resolved off AV vickie blocking drugs May need restarting of some antihypertensive medications which would not affect the SA node or AV node Okay with me for discharge when you say so I will not schedule routine follow-up (2) Acute exacerbation of CHF (congestive heart failure) Status: Acute Assessment and plan: SEE LIST AND PLAN OF CARE BELOW Qualifiers: Congestive heart failure type: diastolic Qualified Code(s): I50.33 - Acute on chronic diastolic (congestive) heart failure (3) Dyspnea Status: Resolved Assessment and plan: SEE LIST AND PLAN OF CARE BELOW (4) CVA, old, hemiparesis Status: Chronic Assessment and plan: SEE LIST AND PLAN OF CARE BELOW (5) Chronic atrial fibrillation Status: Chronic Assessment and plan: SEE LIST AND PLAN OF CARE BELOW (6) Hypertension Status: Chronic Assessment and plan: SEE LIST AND PLAN OF CARE BELOW Qualifiers: Hypertension type: essential hypertension Qualified Code(s): I10 - Essential (primary) hypertension Cardiology - PN: Subj Interval history: 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 The patient was transferred from a local senior care to the ER on 03/21/2017 for shortness of breath and bradycardia. Cardiac history is significant for Afib, CHF, hypertension, CVA. The patient is a poor historian due to previous CVA, as a result most of this information has been obtained from old medical records. There is no family at bedside at present. The patient is a DO NOT RESUSCITATE. The patient is awake and alert, and appears to respond inappropriately to every question with either yes or no. Hemiplegia noted to right extremities post CVA. The patient's antihypertensive medications have been held due to hypotension, however the patient's blood pressure has improved through the day with the last reading 134/58. EKG reveals atrial fibrillation with a rate in the 40s and 50s today. Labs reviewed today:H & H at 10.7 and 33.6; Potassium 3.4; Creatinine 0.6; TSH and T4 unremarkable; lipid panel reviewed; troponin upon admission was negative. The patient is continuing warfarin therapy with a subtherapeutic INR, she will continue Lovenox until INR is therapeutic. It is difficult to determine through interview and exam if the patient's bradycardia is symptomatic. Would continue continuous telemetry monitoring and could consider pacemaker if needed and the family is agreeable. MARCH 25, 2017: The patient is awake and alert this morning lying in bed. It appears that her blood pressure and heart rate have responded well to holding antihypertensives, would recommend slowly restarting medication and continue holding any vickie blocking agent. Telemetry continues to show Afib, rate in the 60s-70s. Chest x-ray reveals enlarged heart, consistent with congestive heart failure with possible superimposed pneumonia. Patient remains afebrile. Labs reviewed today: CBC with unremarkable white count, stable hemoglobin and hematocrit at 11.4 and 35.9, creatinine 0.6, electrolytes WNL. Heart failure is thought to be diastolic, given her normal EF by echo from 03/21. MARCH 26, 2017: Patient is awake and alert in bed. Will restart Norvasc and lisinopril at previous dose, as the patient is now hypertensive. Telemetry reveals that the patient remains in Afib with a controlled heart rate in the 60s , and this is remained stable. Labs reviewed electrolytes WNL and creatinine 0.5. Most recent blood pressure noted at 169/72, heart rate 68, patient remains afebrile, oxygen saturation 96%. From a cardiology standpoint, I believe the patient is ready for discharge to the senior care. Will discuss the case with Dr. Isidro and await further recommendations. ASSESSMENT/PLAN: 1. Bradycardia -Afib on EKG with a rate in the 50s-60s, continue to monitor with telemetry. 2. Hypotension -resolved, restart antihypertensives, no AV vickie blocking agents. 3. Chronic Afib -continue warfarin and Lovenox, continue telemetry. 4. Acute CHF -improved, diuresed well. 5. Old CVA, right-sided hemiplegia -continue warfarin and Lovenox, chronic Afib. . Exam (Progress Note) - Constitutional Vitals: Period Temp Pulse Resp BP Sys/Marley Pulse Ox Last 24 Hr 97.7 F-98.8 F 63-86 16-20 158-188/72-85 90-97 Exam: General: [Appears well with no apparent distress.] [Pleasant and cooperative. ] [Appears comfortable.] HEENT: [PERRL, normocephalic, atraumatic]. [Mucous membranes moist.] [No jaundice noted.] [Conjunctiva moist and clear, sclerae anicteric.] Neck: [No JVD/HJR, no thyromegaly or lymphadenopathy noted.] [ No carotid bruit appreciated.] Cardiac: [Irregular rate and rhythm.] [No murmur rub or gallop.] [PMI is nondisplaced.] Lungs: [Essentially clear to auscultation without accessory muscle use to assist the respiratory pattern.] [No oxygen required] Abdomen: [Soft, bowel sounds normoactive.] [Nontender and nondistended.] [No abdominal bruit or thrill noted.] [No masses noted.] Musculoskeletal: [No fluid collection.] [Decreased range of motion is noted.] Hemiplegia noted to right upper and lower extremity post CVA. Extremities: [No clubbing, cyanosis noted.] [Generalized dependent edema noted to right upper extremity.] [Upper extremity pulses 2+.] [Lower extremity pulses 2+.] [Capillary refill less than 3 seconds.] Skin: [No unusual lesions or rashes.] [No skin breakdown appreciated.] Neuro: [Awake and alert.] [Patient does not move right upper or lower extremity. Moves left upper and lower extremity without difficulty.] [No essential tremor is appreciated.] Result/EKG - Labs CBC & BMP: 03/25/17 04:16 03/26/17 05:32 Lab Results: I have reviewed the past 24 hour labs Labs: Laboratory Results - last 24 hr 03/26/17 03/26/17 05:32 05:32 INR 1.5 PT Patient/Control Mix 16.6 D Sodium 136 Potassium 4.0 Chloride 98 Carbon Dioxide 33 H Anion Gap 9.0 BUN 14 Creatinine 0.50 L GFR Calculation 106 BUN/Creatinine Ratio 28.00 H Glucose 91 Calculated Osmolality 272.0 L Calcium 9.1 Magnesium 2.1 - EKG EKG results: interpreted by me EKG shows: bradycardia, atrial fibrillation Quality Measures - VTE Contraindication to Pharmacological VTE Prophylaxis: Already on Theraputic Agent , No Prophylaxis Needed Specialty Discharge - Follow Up or Referrals IDwaine Dale, MD, personally performed the services described in this documentation, ascribed by Magda Kumar NP in my presence, and it is both accurate and complete .
[2017-03-27] MEDS ORDERED: amLODIPine 10 MG TABLET PO SCH (09:30)
--- NOTE | 2017-04-01 08:41 | Physician Query Form ---
CLICK EDIT DOCUMENT TO SELECT QUERY ANSWER --> OK --> SIGN Dai Balderrama RN, CCDS Certified Clinical Analyzer Sales W) [phone] (f) [phone] [email or web address]: Make your selection(s) from the choices in EACH section by typing an "x" and enter comments in the comment section. Please use your independent medical judgment in providing your response. This request does not imply that any particular answer is desired or expected. CLINICAL INDICATORS: (Providers should not edit this section) The below diagnosis was documented in the record, but is not consistently noted in subsequent documentation. "Chest x-ray showed infiltrates bilaterally due to congestive heart failure although pneumonia could not be ruled out and she was treated with antibiotics doxycycline and Augmentin that were continued at the snf". Diagnosis: Pneumonia Please clarify the following: ( ) The above diagnosis was monitored, evaluated, and/or treated and is a confirmed diagnosis ( ) The above diagnosis was ruled out (X ) The above diagnosis is still a likely, suspected, probable diagnosis ( ) Other, please specify: ( ) Clinically unable to determine COMMENTS: PLEASE ALSO DOCUMENT RESPONSE IN PROGRESS NOTES AND/OR DISCHARGE SUMMARY Use of terms such as suspected, likely, or probable (associated with a specific diagnosis that is being evaluated, monitored, or treated as if it exists) are acceptable and can be restated in the discharge summary if not ruled out. MTDD
== END 2017-03-26 18:00 | DRG 291 ==
LOC: EDBD → EDUNIT# → N.ED 16:03 → N.EDINP 17:58 → SUATTDRO 17:58 → N.TELEN 19:04
PROVIDERS: ADMIT Internal Medicine; ATTEND Hospitalist